=== PATIENT | male | born 1970 ===

== ENCOUNTER 2017-07-19 07:11 | Emergency (ER) | payer OTHER ==
[2017-07-19] MEDS ORDERED: Fluorescein Sodium TOPICAL* 1 MG TEST OPHTHALMIC ONE (07:24)
[2017-07-19] MEDS ORDERED: Tetracaine 0.5% OPTH.SOL 4 ML* 1 DROP BTL BOTH EYES ONE (07:29)
[2017-07-19] MEDS ORDERED: Tetracaine 0.5% OPTH.SOL 15ML* BTL ONE (07:32)
--- NOTE | 2017-07-19 07:45 | UC ---
Eye Complaint HPI - HPI Summary HPI Summary: feels like eyelash in my eye. last 3-4 days. Worse today. no vis changes. no recent illness. no contact lens. - History of Current Complaint Chief Complaint: UCEye Stated Complaint: EYE COMPLAINT Time Seen by Provider: 07/19/17 07:20 Hx Obtained From: Patient - Allergies/Home Medications Allergies/Adverse Reactions: Allergies Allergy/AdvReac Type Severity Reaction Status Date / Time No Known Allergies Allergy Verified 07/19/17 07:18 PMH/Surg Hx/FS Hx/Imm Hx Previously Healthy: Yes - Surgical History Surgical History: Yes Surgery Procedure, Year, and Place: tubes in ears as a child - Family History Known Family History: Positive: Unknown - Social History Alcohol Use: Weekly Alcohol Amount: wine Substance Use Type: None Smoking Status (MU): Never Smoked Tobacco Review of Systems Constitutional: Negative Skin: Negative Eyes: Other ENT: Negative Respiratory: Negative Cardiovascular: Negative Gastrointestinal: Negative Genitourinary: Negative Motor: Negative Musculoskeletal: Negative Neurological: Negative Psychological: Negative Is Patient Immunocompromised?: No All Other Systems Reviewed And Are Negative: Yes Physical Exam Triage Information Reviewed: Yes Appearance: Well-Appearing, Well-Nourished Vital Signs: Initial Vital Signs Temp 98 F 07/19/17 07:18 Pulse 68 07/19/17 07:18 Resp 16 07/19/17 07:18 BP 160/98 07/19/17 07:18 Pulse Ox 100 07/19/17 07:18 Vital Signs Reviewed: Yes Eyes: Positive: Other: - perrla eomi. OD - swelling inf med lid. flourescein w/o uptake. C/w local infection. lids everted - nad ENT Exam: Normal - gbrossly normal Neck exam: Normal - grossly normal Respiratory Exam: Normal Respiratory: Positive: Chest non-tender, Lungs clear, Normal breath sounds, No respiratory distress Cardiovascular Exam: Normal Cardiovascular: Positive: RRR, No Murmur, Pulses Normal Abdominal Exam: Normal Musculoskeletal Exam: Normal Neurological Exam: Normal Psychological Exam: Normal Skin Exam: Normal Eye Complaint Course/Dx - Course Course Of Treatment: reviewed coa / tx plan. questons answered as posed. - Differential Dx/Diagnosis Provider Diagnoses: stye R eye Discharge - Discharge Plan Condition: Stable Disposition: HOME Prescriptions: Moxifloxacin 0.5% OPHTH(NF) [Vigamox 0.5% OPHTH(NF)] 0.5 % OP TID #1 bottle Patient Education Materials: Carly (ED) Forms: *Work Release Referrals: No Primary Care Phys,NOPCP [Primary Care Provider] - Javier Coates MD [Medical Doctor] - Gabe Godinez MD [Medical Doctor] - [facility] [Outside] Additional Instructions: Follow up eye doctor if worse or no better in 3 days. avoid contact lens (if applicable) until symptoms resolved. primary care provider - routine - ideally 4 weeks for blood pressure recheck
== END 2017-07-19 07:55 | disposition home or self-care (01) ==
LOC: UCEAST 07:11
DX: H00.013 Hordeolum externum right eye, unspecified eyelid (principal)
CPT/HCPCS: 99202; A9270-GY; G0463